=== PATIENT | male | born 1980 ===

== ENCOUNTER 2019-12-12 10:07 | Inpatient (IN) | payer SELFPAY ==
--- NOTE | 2019-12-12 10:21 | EDM.PDOC ---
ED HPI GENERAL MEDICAL PROBLEM - General Chief Complaint: General Stated Complaint: LEG RASH, TESTICULAR PAIN, BLOATING Time Seen by Provider: 12/12/19 10:10 Source of Information: Reports: Patient. Denies: Old Records (No [facility] records available) History Limitations: Reports: No Limitations - History of Present Illness INITIAL COMMENTS - FREE TEXT/NARRATIVE: The patient drove himself to the emergency room via private automobile for evaluation of a 16-day history of nonspecific rash on his legs bilaterally. During the last month he has also had some nonspecific abdominal bloating and increased dependent edema with progressive testicular swelling this morning. He did have some nonspecific chest pain about 2 months ago with negative EKG and no other significant work-up by his history and another facility. He does complain of nonspecific 8/10 abdominal discomfort from his bloating. No recent history of other abdominal pain, heartburn, nausea, diarrhea, melena, gross hematochezia, or any food intolerance, including fatty foods, etc. with normal bowel movement yesterday. He denies any gross hematuria, colic, or other UTI symptoms. The patient denies any chest pain/pressure, heart flutter, dizziness, orthostasis, orthopnea, diaphoresis, paresthesias, or any other anginal-type symptoms, although some possible mild dyspnea and decreased exercise tolerance during the last couple of months. The patient also denies any recent fever, cough, wheezing, etc.. Onset: Gradual, Other (As above) Duration: Getting Worse Location: Reports: Abdomen, Lower Extremity, Left, Lower Extremity, Right. Denies: Head, Face, Neck, Chest, Back, Upper Extremity, Left, Upper Extremity, Right, Radiates to Quality: Reports: Ache, Same as Previous Episode Severity: Moderate Improves with: Reports: None Worsens with: Reports: None Context: Reports: Other (As above). Denies: Sick Contact, Trauma Associated Symptoms: Reports: Shortness of Breath. Denies: Confusion, Chest Pain, Cough, Diaphoresis, Fever/Chills, Headaches, Loss of Appetite, Malaise, Nausea/Vomiting, Syncope, Weakness Treatments [employer]: Reports: Other (see below) (None) - Related Data Allergies Allergy/AdvReac Type Severity Reaction Status Date / Time No Known Allergies Allergy Verified 12/12/19 10:08 Home Meds: Home Meds Furosemide [Lasix] 20 mg PO DAILY #7 tab 12/12/19 [Rx] Potassium Chloride 20 meq PO DAILY #10 tablet.er 12/12/19 [Rx] metFORMIN [Glucophage XR] 500 mg PO BIDMEALS #14 tab.er 12/12/19 [Rx] Past Medical History HEENT History: Reports: None. Denies: Allergic Rhinitis, Cataract, Glaucoma, Hard of Hearing, Impaired Vision, Macular Degeneration, Otitis Media, Retinal Detachment Cardiovascular History: Reports: High Cholesterol. Denies: Afib, Aneurysm, Arrhythmia, Blood Clots/VTE/DVT, CAD, Cardiomyopathy, Heart Failure, Heart Murmur, Hypertension, GA, PVD, Syncope Respiratory History: Reports: None, Intubation, Previous. Denies: Asthma, Bronchitis, Recurrent, COPD, Intubation, Difficult, PE, Pneumonia, Recurrent, Pneumothorax, TB Gastrointestinal History: Reports: None. Denies: Cholelithiasis, Chronic Constipation, Chronic Diarrhea, Fecal Incontinence, Gastritis, GERD, GI Bleed, Hepatitis, Inflammatory Bowel Disease, Irritable Bowel Syndrome, Jaundice, Pancreatitis Genitourinary History: Reports: None. Denies: Acute Renal Failure, BPH, Chronic Renal Insuffiency, Renal Calculus, Retention, Urinary, STD, Urinary Incontinence, UTI, Recurrent Musculoskeletal History: Reports: None. Denies: Arthritis, Back Pain, Chronic, Fracture, Gout, Neck Pain, Chronic, Osteoarthritis, Osteoporosis, RA, SLE Neurological History: Reports: None. Denies: Cerebral Aneurysms, Concussion, CVA, Headaches, Chronic, Head Trauma, Migraines, MS, Neuropathy, Peripheral, Parkinson's, Seizure, TIA Psychiatric History: Reports: None. Denies: Abuse, Victim of, ADD, ADHD, Addiction, Anxiety, Depression, Psych Hospitalization(s), Psychosis, PTSD, Suicide Attempt, Suicidal Ideation Endocrine/Metabolic History: Reports: Obesity/BMI 30+. Denies: Diabetes, Type I, Diabetes, Type II, Diabetes Mellitus, Type 3c, Hypothyroidism, IDDM Hematologic History: Reports: None. Denies: Anemia, Blood Transfusion(s), Iron Deficiency Immunologic History: Reports: None. Denies: AIDS, HIV, SLE Oncologic (Cancer) History: Reports: None. Denies: Basal Cell Carcinoma, Colon, Hodgkin's Lymphoma, Leukemia, Lymphoma, Malignant Melanoma, Non-Hodgkin's Lymphoma, Prostate, Squamous Cell Carcinoma Dermatologic History: Reports: Chronic Cellulitis, Other (See Below). Denies: Eczema, Psoriasis Other Dermatologic History: Recurrent cellulitis and superficial skin ulcers of the legs bilaterally. - Infectious Disease History Infectious Disease History: Reports: Chicken Pox. Denies: C-Difficile, Measles, Meningitis, Mononucleosis, Mumps, Pertussis (Whooping Cough), Rheumatic Fever, Rubella, Scarlet Fever, Shingles, TB, VRE - Past Surgical History Head Surgeries/Procedures: Reports: None HEENT Surgical History: Reports: Adenoidectomy, Tonsillectomy, Other (See Below). Denies: Cataract Surgery, Eye Surgery, Laser Surgery, LASIK, Myringotomy w Tube(s), Naso-Sinus Surgery, Oral Surgery Other HEENT Surgeries/Procedures: Tonsillectomy and adenoidectomy at age 5. Cardiovascular Surgical History: Reports: None. Denies: Varicose Respiratory Surgical History: Reports: None. Denies: Thoracentesis GI Surgical History: Reports: None. Denies: Appendectomy, Cholecystectomy, Colonoscopy, Hernia, Abdominal, Hernia, Inguinal, Hernia Repair/Other, Polypectomy Male Surgical History: Reports: None. Denies: Vasectomy Neurological Surgical History: Reports: None. Denies: Vertebroplasty Musculoskeletal Surgical History: Reports: Other (See Below). Denies: Arthroscopic Knee, Arthroscopic Procedure, Carpal Tunnel, Ganglion Cyst, Joint Replacement, ORIF, Shoulder Surgery Other Musculoskeletal Surgeries/Procedures:: Open left knee surgery for repair of torn ligaments secondary to football injury at age 19. Social & Family History - Family History HEENT: Reports: None. Denies: Glaucoma, Macular Degeneration, Retinal Detac hment Cardiac: Reports: PVD/COD. Denies: Aneurysm, Arrhythmia, Blood Clots/VTE/DVT, CAD, Heart Failure, Heart Murmur, High Cholesterol, Hypertension, GA, Syncope Other Cardiac Family History: Maternal uncle with peripheral vascular disease secondary to his diabetes requiring toe amputations. Respiratory: Reports: None. Denies: Asthma, COPD, PE, Pneumothorax, Sleep Apnea GI: Reports: None. Denies: Celiac Disease, Cholelithiasis, Colon Polyps, GERD, GI bleed, Inflammatory Bowel Disease, Irritable Bowel Syndrome, PUD : Reports: None. Denies: Renal Calculus, Renal Disease/Insufficiency OBGYN: Reports: None. Denies: Endometriosis, Recurrent Spontaneous Musculoskeletal: Reports: None. Denies: Arthritis, Gout, RA, SLE Neurological: Reports: None. Denies: Alzheimers Disease, Cerebral Aneurysms, CVA, Dementia, Migraines, Parkinson's, Seizure, TIA Psychiatric: Reports: None. Denies: Abuse, Victim of, ADD, ADHD, Anxiety, Depression, Psych Hospitalization(s), PTSD, Suicide Attempt Endocrine/Metabolic: Reports: Diabetes, type II, IDDM, Other (See Below). Denies: Diabetes, Type I, Diabetes Mellitus, Type 3c, Hypothyroidism Other Endocrine/Metabolic Family History: Maternal grandmother and maternal uncles x2 with IDDM. Hematologic: Reports: Anemia, Other (See Below). Denies: SLE Other Hematologic Family History: Sister and brother with unknown type of anemia. Immunologic: Reports: None. Denies: AIDS, HIV, SLE Dermatologic: Reports: None. Denies: Eczema, Psoriasis Oncologic: Reports: Ovarian, Other (See Below). Denies: Colon, Esophageal, Hodgkin's Lymphoma, Leukemia, Lymphoma, Non-Hodgkin's Lymphoma, Prostate Other Oncologic Family History: Maternal grandmother with fatal ovarian cancer - Tobacco Use Smoking Status *Q: Light Tobacco Smoker Tobacco Use Within Last Twelve Months: Cigarettes Years of Tobacco use: 14 Packs/Tins Daily: 0.1 Packs/Tins Daily Comment: Occasional cigarette every couple of weeks. Used Tobacco, but Quit: No Smoking Cessation Information Provided To Patient: Yes (At hospital discharge) Second Hand Smoke Exposure: No Second Hand Smoke Education Provided: No - Caffeine Use Caffeine Use: Reports: Energy Drinks (1 can every 3 months), Soda (2 sodas per day), Tea (Occasional). Denies: Coffee - Alcohol Use Alcohol Use History: Yes Days Per Week of Alcohol Use: 0 Number of Drinks Per Day: 6 Number of Drinks Per Day Comment: Usually beer about 2 times per month. No previous DWIs, problems with alcohol abuse, etc. 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 ED EXAM, GENERAL - Physical Exam Exam: See Below Exam Limited By: No Limitations General Appearance: Alert, WD/WN, No Apparent Distress Eye Exam: Bilateral Eye: EOMI, Normal Inspection (No nystagmus), PERRL Ears: Normal External Exam, Normal Canal, Hearing Grossly Normal, Normal TMs Nose: Normal Inspection, Normal Mucosa, No Blood Throat/Mouth: Normal Inspection, Normal Lips, Normal Teeth, Normal Gums, Normal Oropharynx, Normal Voice, No Airway Compromise. No: Dysphagia, Perioral Cyanosis Head: Atraumatic, Normocephalic. No: Facial Swelling, Facial Tenderness, Sinus Tenderness Neck: Normal Inspection, Supple, Non-Tender, Full Range of Motion. No: Carotid Bruit, Lymphadenopathy (L), Lymphadenopathy (R), Thyromegaly Respiratory/Chest: No Respiratory Distress, No Accessory Muscle Use, Chest Non- Tender, Rales (Mild bilateral basilar rales). No: Pleural Rub, Retractions Cardiovascular: Normal Peripheral Pulses, No Edema (Dependent edema as below), No Gallop, No JVD, No Murmur, No Rub, Tachycardia (Occasional borderline tachycardia with regular rhythm). No: Gallop/S3, Gallop/S4, Friction Rub Peripheral Pulses: 2+: Radial (L), Radial (R), Dorsalis Pedis (L), Dorsalis Pedis (R) GI/Abdominal: Normal Bowel Sounds, Soft, Non-Tender, No Organomegaly, No Distention, No Abnormal Bruit, No Mass, Other (Obese). No: Guarding (Male) Exam: No Hernia, Other (Moderate bilateral hydroceles). No: Circumcised, Scrotum Tenderness (L), Testicular Mass Rectal (Males) Exam: Deferred Back Exam: Normal Inspection, Full Range of Motion. No: CVA Tenderness (L), CVA Tenderness (R), Muscle Spasm Extremities: Normal Range of Motion, Non-Tender, Normal Capillary Refill, Pedal Edema (+2 bilateral pedal/pretibial edema with multiple superficial noninfected ulcerations and moderate venous stasis dermatitis in the anterior tibial regions). No: Hussain's Sign, Leg Pain, Increased Warmth, Redness Neurological: Alert, Oriented, CN II-XII Intact, Normal Cognition, Normal Gait, Normal Reflexes, No Motor/Sensory Deficits Psychiatric: Normal Affect, Normal Mood Skin Exam: Wound/Incision (As above). No: Diaphoretic, Lymphangitis Lymphatic: No Adenopathy EKG INTERPRETATION EKG Date: 12/12/19 Time: 10:41 Rhythm: Other (Sinus tachycardia) Rate (Beats/Min): 105 [place]: LAD-Left [place]us Deviation (Extended left cardiac axis) P-Wave: Present QRS: Other (QRS interval of 0.18 seconds representing a complete bifascicular bundle branch block. Left ventricular hypertrophy by voltage) ST-T: Normal QT: Normal NH/PQ Interval: 0.16 seconds with extreme poor R wave progression in the anterior leads Comparison: NA - No Prior EKG EKG Interpretation Comments: 1. No acute ischemic changes 2. Sinus tachycardia 3. Complete bifascicular bundle branch block 4. Left ventricular hypertrophy by voltage Course - Vital Signs Last Recorded V/S: Last Vital Signs Temp 36.0 C L 12/12/19 10:10 Pulse 107 H 12/12/19 10:10 Resp 18 12/12/19 10:10 BP 119/78 12/12/19 10:10 Pulse Ox 96 12/12/19 10:10 Vital Signs - 24 hr 12/12/19 10:10 Temperature [ 36.0 C L Temporal] Pulse, 107 H Peripheral [ Pulse Oximetry] Respiratory 18 Rate Blood Pressure 119/78 [Left Upper Arm ] O2 Sat by Pulse 96 Oximetry - Orders/Labs/Meds Orders: Active Orders 24 hr Category Date Time Status EKG Documentation Completion [RC] ASDIRECTED Care 12/12/19 10:22 Active Nothing Per Oral Diet [DIET] Diet 12/12/19 Breakfast Active Abdomen Series w Chest 1V [CR] Stat Exams 12/12/19 10:21 Taken Obtain Past Medical Record [OM.PC] Urgent Oth 12/12/19 10:21 Active Resuscitation Status Stat Resus Stat 12/12/19 10:21 Ordered Labs: Laboratory Tests 12/12/19 12/12/19 12/12/19 Range/Units 10:25 10:25 10:25 WBC 6.0 (4.0-10.2) K/uL RBC 4.36 (4.33-5.41) M/uL Hgb 12.7 L (13.1-16.8) g/dL Hct 40.1 (39.0-49.0) % MCV 92.0 (84.0-98.0) fL MCH 29.1 (28.2-33.3) pg MCHC 31.7 (31.7-36.0) g/dL RDW 15.7 H (11.2-14.1) % Plt Count 146 L (150-350) K/uL Neut % (Auto) 64.6 (45.0-80.0) % Lymph % (Auto) 26.6 (10.0-50.0) % [place] % (Auto) 7.1 (2.0-14.0) % Eos % (Auto) 1.5 (0.0-5.0) % Baso % (Auto) 0.2 (0.0-2.0) % Neut # (Auto) 3.85 (1.40-7.00) K/uL Lymph # (Auto) 1.58 (0.50-3.50) K/uL [place] # (Auto) 0.42 (0.00-1.00) K/uL Eos # (Auto) 0.09 (0.00-0.50) K/uL Baso # (Auto) 0.01 (0.00-0.20) K/uL PT 12.1 H (9.5-12.0) SEC INR 1.2 APTT 25.7 (24.5-32.8) SEC Sodium (136-145) mmol/L Potassium (3.5-5.1) mmol/L Chloride (98-107) mmol/L Carbon Dioxide (21.0-32.0) mmol/L BUN (7-18) mg/dL Creatinine (0.51-1.17) mg/dL Est Cr Clr Drug Dosing mL/min Estimated GFR (MDRD) mL/min Glucose (74-106) mg/dL Hemoglobin A1c (4.3-5.7) % Lactic Acid (0.4-2.0) mmol/L Uric Acid (2.6-7.2) mg/dL Calcium (8.5-10.1) mg/dL Magnesium (1.8-2.4) mg/dL Total Bilirubin (0.2-1.0) mg/dL Direct Bilirubin (0.0-0.2) mg/dL Indirect Bilirubin mg/dL AST (15-37) U/L ALT (12-78) U/L Alkaline Phosphatase (46-116) IU/L Ammonia (11-32) umol/L Creatine Kinase (26-308) U/L Creatine Kinase Index (0.0-2.5) % CK-MB (CK-2) (0.00-3.60) ng/mL Troponin I (0.000-0.056) ng/mL NT-Pro-B Natriuret Pep (0-125) pg/mL Total Protein (6.4-8.2) g/dL Albumin (3.4-5.0) g/dL Amylase 62 (25-115) U/L Lipase (73-393) U/L 12/12/19 12/12/19 12/12/19 Range/Units 10:25 10:25 10:25 WBC (4.0-10.2) K/uL RBC (4.33-5.41) M/uL Hgb (13.1-16.8) g/dL Hct (39.0-49.0) % MCV (84.0-98.0) fL MCH (28.2-33.3) pg MCHC (31.7-36.0) g/dL RDW (11.2-14.1) % Plt Count (150-350) K/uL Neut % (Auto) (45.0-80.0) % Lymph % (Auto) (10.0-50.0) % [place] % (Auto) (2.0-14.0) % Eos % (Auto) (0.0-5.0) % Baso % (Auto) (0.0-2.0) % Neut # (Auto) (1.40-7.00) K/uL Lymph # (Auto) (0.50-3.50) K/uL [place] # (Auto) (0.00-1.00) K/uL Eos # (Auto) (0.00-0.50) K/uL Baso # (Auto) (0.00-0.20) K/uL PT (9.5-12.0) SEC INR APTT (24.5-32.8) SEC Sodium 136 (136-145) mmol/L Potassium 3.8 (3.5-5.1) mmol/L Chloride 101 (98-107) mmol/L Carbon Dioxide 25.7 (21.0-32.0) mmol/L BUN 13 (7-18) mg/dL Creatinine 0.81 (0.51-1.17) mg/dL Est Cr Clr Drug Dosing 130.41 mL/min Estimated GFR (MDRD) > 60 mL/min Glucose 249 H (74-106) mg/dL Hemoglobin A1c (4.3-5.7) % Lactic Acid 1.6 (0.4-2.0) mmol/L Uric Acid 0.1 L (2.6-7.2) mg/dL Calcium 8.8 (8.5-10.1) mg/dL Magnesium 1.9 (1.8-2.4) mg/dL Total Bilirubin 1.7 H (0.2-1.0) mg/dL Direct Bilirubin (0.0-0.2) mg/dL Indirect Bilirubin mg/dL AST 24 (15-37) U/L ALT 25 (12-78) U/L Alkaline Phosphatase 71 (46-116) IU/L Ammonia 32 (11-32) umol/L Creatine Kinase 201 (26-308) U/L Creatine Kinase Index 0.9 (0.0-2.5) % CK-MB (CK-2) 1.90 (0.00-3.60) ng/mL Troponin I 0.012 (0.000-0.056) ng/mL NT-Pro-B Natriuret Pep 1582 H (0-125) pg/mL Total Protein 7.7 (6.4-8.2) g/dL Albumin 3.5 (3.4-5.0) g/dL Amylase (25-115) U/L Lipase 132 (73-393) U/L 12/12/19 12/12/19 Range/Units 10:25 10:25 WBC (4.0-10.2) K/uL RBC (4.33-5.41) M/uL Hgb (13.1-16.8) g/dL Hct (39.0-49.0) % MCV (84.0-98.0) fL MCH (28.2-33.3) pg MCHC (31.7-36.0) g/dL RDW (11.2-14.1) % Plt Count (150-350) K/uL Neut % (Auto) (45.0-80.0) % Lymph % (Auto) (10.0-50.0) % [place] % (Auto) (2.0-14.0) % Eos % (Auto) (0.0-5.0) % Baso % (Auto) (0.0-2.0) % Neut # (Auto) (1.40-7.00) K/uL Lymph # (Auto) (0.50-3.50) K/uL [place] # (Auto) (0.00-1.00) K/uL Eos # (Auto) (0.00-0.50) K/uL Baso # (Auto) (0.00-0.20) K/uL PT (9.5-12.0) SEC INR APTT (24.5-32.8) SEC Sodium (136-145) mmol/L Potassium (3.5-5.1) mmol/L Chloride (98-107) mmol/L Carbon Dioxide (21.0-32.0) mmol/L BUN (7-18) mg/dL Creatinine (0.51-1.17) mg/dL Est Cr Clr Drug Dosing mL/min Estimated GFR (MDRD) mL/min Glucose (74-106) mg/dL Hemoglobin A1c 9.1 H (4.3-5.7) % Lactic Acid (0.4-2.0) mmol/L Uric Acid (2.6-7.2) mg/dL Calcium (8.5-10.1) mg/dL Magnesium (1.8-2.4) mg/dL Total Bilirubin 1.7 H (0.2-1.0) mg/dL Direct Bilirubin 0.7 H (0.0-0.2) mg/dL Indirect Bilirubin 1.0 mg/dL AST (15-37) U/L ALT (12-78) U/L Alkaline Phosphatase (46-116) IU/L Ammonia (11-32) umol/L Creatine Kinase (26-308) U/L Creatine Kinase Index (0.0-2.5) % CK-MB (CK-2) (0.00-3.60) ng/mL Troponin I (0.000-0.056) ng/mL NT-Pro-B Natriuret Pep (0-125) pg/mL Total Protein (6.4-8.2) g/dL Albumin (3.4-5.0) g/dL Amylase (25-115) U/L Lipase (73-393) U/L Meds: None - Radiology Interpretation Free Text/Narrative:: Acute abdominal x-rays shows moderate cardiomegaly and CHF with additional pulmonary obstructive disease but no pulmonary infiltrates or pneumothorax. Moderate diffuse stool and mild nonspecific bowel gaseous pattern with no free air, fluid levels, ileus, or obstruction. Mildly elevated right hemidiaphragm. Departure - Departure Time of Disposition: 13:30 Disposition: Admitted As Inpatient 66 Condition: Good Clinical Impression: CHF, Congestive heart failure, Left bundle branch block, Hyperbilirubinemia, Tobacco abuse counseling Diabetes mellitus Qualifiers: Diabetes mellitus type: type 2 Diabetes mellitus senior living insulin use: without senior living use Diabetes mellitus complication status: without complication Qualified Code(s): E11.9 - Type 2 diabetes mellitus without complications Cellulitis Qualifiers: Site of cellulitis: extremity Site of cellulitis of extremity: lower extremity Laterality: unspecified laterality Qualified Code(s): L03.119 - Cellulitis of unspecified part of limb Anemia Qualifiers: Anemia type: unspecified type Qualified Code(s): D64.9 - Anemia, unspecified - Discharge Information *PRESCRIPTION DRUG MONITORING PROGRAM REVIEWED*: Not Applicable *COPY OF PRESCRIPTION DRUG MONITORING REPORT IN PATIENT YEISON: Not Applicable Prescriptions: metFORMIN [Glucophage XR] 500 mg PO BIDMEALS #14 tab.er Furosemide [Lasix] 20 mg PO DAILY #7 tab Potassium Chloride 20 meq PO DAILY #10 tablet.er Instructions: Diabetes Mellitus and Nutrition, Adult Referrals: PCP,Not In Area [Ordering Only Provider] - Forms: ED Department Discharge Care Plan Goals: See plan Sepsis Event Note (ED) - Focused Exam Vital Signs: Vital Signs Temp Pulse Resp BP Pulse Ox 12/12/19 10:10 36.0 C L 107 H 18 119/78 96 - Problem List & Annotations (1) CHF, Congestive heart failure SNOMED Code(s): 79437034 Code(s): I50.9 - HEART FAILURE, UNSPECIFIED Status: Acute Priority: High Current Visit: Yes Onset Date: 12/12/19 Annotation/Comment:: Initially the patient wanted to be discharged to home rather than be admitted, however subsequently changed his mind. Previously planned following of his heart disease, etc. by Savanna Auguste, OPHTHALMOLOGY TECHNICIAN-C from [facility] in [place] were canceled. No chest pain or anginal type symptoms, however patient would benefit from a Cardiolite stress test once his CHF has improved secondary to multiple cardiac risk factors. IV Lasix to be initiated shortly after admission. Echocardiogram recommended on an outpatient basis. Initiate standard rule out GA orders. Cardiology consultation depending on his clinical course. (2) Diabetes mellitus SNOMED Code(s): 23766206 Code(s): E11.9 - TYPE 2 DIABETES MELLITUS WITHOUT COMPLICATIONS Status: Acute Priority: High Current Visit: Yes Onset Date: 12/12/19 Annotation/Comment:: Newly diagnosed with significantly elevated glycosylated hemoglobin. Weight loss in moderation advisable. Heart healthy, diabetic diet to be provided at discharge with additional fluid restriction secondary to his CHF as above. Diabetic teaching during this hospitalization. Patient may be a candidate for insulin therapy. Lipid panel in the a.m.. Obtain urine for microalbumin. Qualifiers: Diabetes mellitus type: type 2 Diabetes mellitus intermodal customer service insulin use: without senior living use Diabetes mellitus complication status: without complication Qualified Code(s): E11.9 - Type 2 diabetes mellitus without complications (3) Left bundle branch block SNOMED Code(s): 58101946 Code(s): I44.7 - LEFT BUNDLE-BRANCH BLOCK, UNSPECIFIED Status: Acute Priority: High Current Visit: Yes Onset Date: 12/12/19 Annotation/Comment:: Newly diagnosed complete bifascicular bundle branch block. Cardiac work-up recommended as above. (4) Cellulitis SNOMED Code(s): 122800967 Code(s): L03.90 - CELLULITIS, UNSPECIFIED Status: Chronic Priority: Medium Current Visit: Yes Annotation/Comment:: Chronic recurrent cellulitis likely secondary to his newly diagnosed diabetes. No indication for antibiotic therapy at this time. Qualifiers: Site of cellulitis: extremity Site of cellulitis of extremity: lower extremity Laterality: unspecified laterality Qualified Code(s): L03.119 - Cellulitis of unspecified part of limb (5) Anemia SNOMED Code(s): 906961130 Code(s): D64.9 - ANEMIA, UNSPECIFIED Status: Acute Priority: Medium Current Visit: Yes Onset Date: 12/12/19 Annotation/Comment:: Work-up with a.m. blood work. No significant abdominal pain or evidence of GI bleed. Qualifiers: Anemia type: unspecified type Qualified Code(s): D64.9 - Anemia, unspecified (6) Hyperbilirubinemia SNOMED Code(s): 03734949 Code(s): E80.6 - OTHER DISORDERS OF BILIRUBIN METABOLISM Status: Acute Priority: Medium Current Visit: Yes Onset Date: 12/12/19 Annotation/Comment:: Observe for now. Possibly secondary to his alcohol use. Consider abdominal and testicular ultrasounds secondary to possible additional ascites and current bilateral hydroceles depending on his clinical course. Ultrasounds not available today. (7) Tobacco abuse counseling SNOMED Code(s): 080699520, 580621711, 823872940 Code(s): Z71.6 - TOBACCO ABUSE COUNSELING Status: Chronic Priority: Medium Current Visit: Yes Annotation/Comment:: Tobacco cessation information to be provided at discharge. (8) COPD (chronic obstructive pulmonary disease) SNOMED Code(s): 72875743 Code(s): J44.9 - CHRONIC OBSTRUCTIVE PULMONARY DISEASE, UNSPECIFIED Status: Acute Priority: Medium Current Visit: Yes Onset Date: 12/12/19 Annotation/Comment:: COPD by today's chest x-ray. No fever or bronchitic type symptoms. Consider PFTs on an outpatient basis. Qualifiers: COPD type: emphysema - Problem List Review Problem List Initiated/Reviewed/Updated: Yes - My Orders Last 24 Hours: My Active Orders 12/12/19 Breakfast Nothing Per Oral Diet [DIET] 12/12/19 10:21 Abdomen Series w Chest 1V [CR] Stat Obtain Past Medical Record [OM.PC] Urgent Resuscitation Status Stat 12/12/19 10:22 EKG Documentation Completion [RC] ASDIRECTED - Assessment/Plan Admission H&P: Please use this note as an admission H&P Last 24 Hours: My Active Orders 12/12/19 Breakfast Nothing Per Oral Diet [DIET] 12/12/19 10:21 Abdomen Series w Chest 1V [CR] Stat Obtain Past Medical Record [OM.PC] Urgent Resuscitation Status Stat 12/12/19 10:22 EKG Documentation Completion [RC] ASDIRECTED Assessment:: As above Plan: As above. Extensive precautions were given to the patient, who is in agreement with the treatment plan. The patient will require about 3-4 days of inpatient/acute care secondary to multiple health problems as above. [facility] physician assumes care in the a.m.
[2019-12-12 10:54] LABS: PTT,PARTIAL THROMBOPLSTIN TIME 25.7 SEC (24.5-32.8)
[2019-12-12 11:17] LABS: CHLORIDE,CL 101 mmol/L (98-107); SODIUM,NA 136 mmol/L (136-145)
[2019-12-12 11:25] LABS: HEMOGLOBIN A1C 9.1 % (4.3-5.7)
[2019-12-12] MEDS ORDERED: Furosemide 40 MG/4 ML VIAL IVPUSH SCH (13:45)
[2019-12-12] MEDS ORDERED: Sodium Chloride 0.9% 10 ML Syringe FLUSH PRN (13:45)
[2019-12-12] MEDS ORDERED: Enoxaparin 60 MG/0.6 ML Syringe SUBCUT SCH (13:45)
[2019-12-12] MEDS ORDERED: Temazepam 15 MG Cap PO PRN (13:45)
[2019-12-12] MEDS ORDERED: Acetaminophen 325 MG Tab PO PRN (13:45)
[2019-12-12] MEDS ORDERED: Furosemide 40 MG/4 ML VIAL IVPUSH ONE (14:16)
[2019-12-12] MEDS: Sodium Chloride 0.9% 10 ML Syringe FLUSH PRN ×2 (14:39→21:07)
[2019-12-12] MEDS: Potassium Chloride 20 MEQ Tab.ER PO SCH (17:42)
[2019-12-12] MEDS: metFORMIN 500 MG Tab PO SCH (17:42)
[2019-12-12] MEDS: Furosemide 40 MG/4 ML VIAL IVPUSH SCH (21:07)
[2019-12-13] MEDS: Sodium Chloride 0.9% 10 ML Syringe FLUSH PRN (05:11)
[2019-12-13] MEDS: Furosemide 40 MG/4 ML VIAL IVPUSH SCH (05:11)
[2019-12-13 08:41] LABS: CHLORIDE,CL 103 mmol/L (98-107); SODIUM,NA 142 mmol/L (136-145)
[2019-12-13] MEDS: metFORMIN 500 MG Tab PO SCH ×2 (09:42→17:03)
[2019-12-13] MEDS: Potassium Chloride 20 MEQ Tab.ER PO SCH ×3 (09:42→17:03)
--- NOTE | 2019-12-13 13:25 | PCM.PN ---
- General Info Date of Service: 12/13/19 Admission Dx/Problem (Free Text): Patient admitted for diuresis after complaining of significant edema. Noted to poorly controlled DM along with some CHF. Subjective Update: Feels much less bloated today. More comfortable. Functional Status: Reports: Pain Controlled, Tolerating Diet, Ambulating, Urinating. Denies: New Symptoms - Review of Systems General: Reports: No Symptoms HEENT: Reports: No Symptoms Pulmonary: Reports: No Symptoms. Denies: Shortness of Breath Cardiovascular: Reports: No Symptoms Gastrointestinal: Reports: No Symptoms Genitourinary: Reports: No Symptoms Musculoskeletal: Reports: No Symptoms Skin: Reports: Other (has areas of discoloration on both lower legs from previous skin lesions) Neurological: Reports: No Symptoms Psychiatric: Reports: No Symptoms Systems Review Comment:: Puffiness/edema complaint - Patient Data Vitals - Most Recent: Last Vital Signs Temp 36.1 C 12/13/19 12:00 Pulse 96 12/13/19 12:00 Resp 14 12/13/19 12:00 BP 125/81 12/13/19 12:00 Pulse Ox 97 12/13/19 12:00 Weight - Most Recent: 132.086 kg I&O - Last 24 Hours: Intake & Output 12/12/19 12/13/19 12/13/19 22:59 06:59 14:59 Intake Total 300 Balance 300 Lab Results Last 24 Hours: Laboratory Results - last 24 hr 12/12/19 12/12/19 12/13/19 Range/Units 15:10 16:55 07:57 WBC 6.2 (4.0-10.2) K/uL RBC 4.32 L (4.33-5.41) M/uL Hgb 12.7 L (13.1-16.8) g/dL Hct 40.4 (39.0-49.0) % MCV 93.5 (84.0-98.0) fL MCH 29.4 (28.2-33.3) pg MCHC 31.4 L (31.7-36.0) g/dL RDW 16.0 H (11.2-14.1) % Plt Count 150 (150-350) K/uL Neut % (Auto) 66.8 (45.0-80.0) % Lymph % (Auto) 21.6 (10.0-50.0) % [place] % (Auto) 9.8 (2.0-14.0) % Eos % (Auto) 1.6 (0.0-5.0) % Baso % (Auto) 0.2 (0.0-2.0) % Neut # (Auto) 4.17 (1.40-7.00) K/uL Lymph # (Auto) 1.35 (0.50-3.50) K/uL [place] # (Auto) 0.61 (0.00-1.00) K/uL Eos # (Auto) 0.10 (0.00-0.50) K/uL Baso # (Auto) 0.01 (0.00-0.20) K/uL Sodium (136-145) mmol/L Potassium (3.5-5.1) mmol/L Chloride (98-107) mmol/L Carbon Dioxide (21.0-32.0) mmol/L BUN (7-18) mg/dL Creatinine (0.51-1.17) mg/dL Est Cr Clr Drug Dosing mL/min Estimated GFR (MDRD) mL/min Glucose (74-106) mg/dL Calcium (8.5-10.1) mg/dL Iron (50-175) ug/dL TIBC (250-450) ug/dL % Saturation Ferritin (8-388) ng/mL Total Bilirubin (0.2-1.0) mg/dL AST (15-37) U/L ALT (12-78) U/L Alkaline Phosphatase (46-116) IU/L Creatine Kinase 193 (26-308) U/L Creatine Kinase Index 0.9 (0.0-2.5) % CK-MB (CK-2) 1.80 (0.00-3.60) ng/mL Troponin I 0.008 (0.000-0.056) ng/mL NT-Pro-B Natriuret Pep (0-125) pg/mL Total Protein (6.4-8.2) g/dL Albumin (3.4-5.0) g/dL Triglycerides (30-150) mg/dL Cholesterol (100-200) mg/dL LDL Cholesterol, Calc (0-100) mg/dL HDL Cholesterol (40-60) mg/dL Vitamin B12 (193-986) pg/mL Specimen Type Urincc Urine Color Yellow Urine Appearance Clear Urine pH 5.5 (5.0-9.0) Ur Specific [place] 1.020 (1.005-1.030) Urine Protein Trace H (NEGATIVE) mg/dL Urine Glucose (UA) Negative (NEGATIVE) mg/dL Urine Ketones Negative (NEGATIVE) mg/dL Urine Occult Blood Negative (NEGATIVE) Urine Nitrite Negative (NEGATIVE) Urine Bilirubin Negative (NEGATIVE) Urine Urobilinogen 4.0 H (0.2-1.0) E.U./dL Ur Leukocyte Esterase Negative (NEGATIVE) Urine RBC Not seen /HPF Urine WBC 0-5 /HPF Ur Epithelial Cells Rare /LPF Urine Bacteria Few (NONE TO FEW) /HPF Urine Mucus Occasional H (NEGATIVE) /LPF 12/13/19 12/13/19 Range/Units 07:57 07:57 WBC (4.0-10.2) K/uL RBC (4.33-5.41) M/uL Hgb (13.1-16.8) g/dL Hct (39.0-49.0) % MCV (84.0-98.0) fL MCH (28.2-33.3) pg MCHC (31.7-36.0) g/dL RDW (11.2-14.1) % Plt Count (150-350) K/uL Neut % (Auto) (45.0-80.0) % Lymph % (Auto) (10.0-50.0) % [place] % (Auto) (2.0-14.0) % Eos % (Auto) (0.0-5.0) % Baso % (Auto) (0.0-2.0) % Neut # (Auto) (1.40-7.00) K/uL Lymph # (Auto) (0.50-3.50) K/uL [place] # (Auto) (0.00-1.00) K/uL Eos # (Auto) (0.00-0.50) K/uL Baso # (Auto) (0.00-0.20) K/uL Sodium 142 (136-145) mmol/L Potassium 3.9 (3.5-5.1) mmol/L Chloride 103 (98-107) mmol/L Carbon Dioxide 32.3 H (21.0-32.0) mmol/L BUN 11 (7-18) mg/dL Creatinine 0.95 (0.51-1.17) mg/dL Est Cr Clr Drug Dosing 111.19 mL/min Estimated GFR (MDRD) > 60 mL/min Glucose 143 H (74-106) mg/dL Calcium 9.2 (8.5-10.1) mg/dL Iron 57 (50-175) ug/dL TIBC 379 (250-450) ug/dL % Saturation 15.00049 Ferritin 192 (8-388) ng/mL Total Bilirubin 2.7 H (0.2-1.0) mg/dL AST 37 (15-37) U/L ALT 29 (12-78) U/L Alkaline Phosphatase 55 (46-116) IU/L Creatine Kinase 131 (26-308) U/L Creatine Kinase Index 0.9 (0.0-2.5) % CK-MB (CK-2) 1.20 (0.00-3.60) ng/mL Troponin I 0.011 (0.000-0.056) ng/mL NT-Pro-B Natriuret Pep 1296 H (0-125) pg/mL Total Protein 7.7 (6.4-8.2) g/dL Albumin 3.3 L (3.4-5.0) g/dL Triglycerides 58 (30-150) mg/dL Cholesterol 126 (100-200) mg/dL LDL Cholesterol, Calc 87 (0-100) mg/dL HDL Cholesterol 27 L (40-60) mg/dL Vitamin B12 896 (193-986) pg/mL Specimen Type Urine Color Urine Appearance Urine pH (5.0-9.0) Ur Specific [place] (1.005-1.030) Urine Protein (NEGATIVE) mg/dL Urine Glucose (UA) (NEGATIVE) mg/dL Urine Ketones (NEGATIVE) mg/dL Urine Occult Blood (NEGATIVE) Urine Nitrite (NEGATIVE) Urine Bilirubin (NEGATIVE) Urine Urobilinogen (0.2-1.0) E.U./dL Ur Leukocyte Esterase (NEGATIVE) Urine RBC /HPF Urine WBC /HPF Ur Epithelial Cells /LPF Urine Bacteria (NONE TO FEW) /HPF Urine Mucus (NEGATIVE) /LPF Jason Results Last 24 Hours: Microbiology 12/12/19 15:10 Urine Culture - Preliminary Urine, Clean Catch NO GROWTH AFTER 1 DAY Med Orders - Current: Current Medications Acetaminophen (Tylenol) 650 mg PO Q4H PRN PRN Reason: Pain Furosemide (Lasix) 20 mg IVPUSH BID [facility] Metformin HCl (Glucophage) 500 mg PO BID [facility] Last Admin: 12/13/19 09:42 Dose: 500 mg Documented by: Potassium Chloride (Klor-Con M20) 20 meq PO BID [facility] Sodium Chloride (Saline Flush) 10 ml FLUSH ASDIRECTED PRN PRN Reason: Keep Vein Open Last Admin: 12/13/19 05:11 Dose: 10 ml Documented by: Sodium Chloride (Saline Flush) 10 ml FLUSH Q12HR PRN PRN Reason: Keep Vein Open Temazepam (Restoril) 15 mg PO BEDTIME PRN PRN Reason: Insomnia Discontinued Medications Enoxaparin Sodium (Lovenox) 60 mg SUBCUT Q24H [facility] Last Admin: 12/12/19 14:25 Dose: Not Given Documented by: Furosemide (Lasix) 40 mg IVPUSH Q8H [facility] Last Admin: 12/12/19 14:25 Dose: Not Given Documented by: Furosemide (Lasix) 40 mg IVPUSH Q8H [facility] Last Admin: 12/13/19 05:11 Dose: 40 mg Documented by: Furosemide (Lasix) 60 mg IVPUSH NOW ONE Stop: 12/12/19 14:17 Last Admin: 12/12/19 14:38 Dose: 60 mg Documented by: Potassium Chloride (Klor-Con M20) 20 meq PO TID [facility] Last Admin: 12/13/19 09:42 Dose: 20 meq Documented by: - Exam General: Alert, Oriented, Cooperative, No Acute Distress HEENT: Pupils Equal, Pupils Reactive, EOMI, Mucous Membr. Moist/[place] Neck: Supple Lungs: Clear to Auscultation, Normal Respiratory Effort Cardiovascular: Regular Rate, Regular Rhythm GI/Abdominal Exam: Normal Bowel Sounds, Non-Tender, No Distention (Male) Exam: Deferred Back Exam: No: CVA Tenderness (L), CVA Tenderness (R), Muscle Spasm Extremities: Non-Tender, Normal Capillary Refill. No: Leg Pain, Increased Warmt h, Mottled, Pallor, Redness Skin: Warm, Dry, Other (no acute changes noted) Neurological: No New Focal Deficit Psy/Mental Status: Alert, Normal Affect, Normal Mood EKG INTERPRETATION EKG Date: 12/13/19 Time: 09:19 Rhythm: NSR Rate (Beats/Min): 90 [place]: Normal P-Wave: Present QRS: LBBB ST-T: Normal QT: Normal Comparison: Change From Previous EKG (improved rate.) Sepsis Event Note - Evaluation Sepsis Screening Result: No Definite Risk - Focused Exam Vital Signs: Vital Signs Temp Pulse Resp BP Pulse Ox 12/13/19 12:00 36.1 C 96 14 125/81 97 12/13/19 08:00 35.6 C L 88 18 113/80 96 12/13/19 04:00 36.3 C 92 16 121/85 95 - Problem List & Annotations (1) Generalized edema SNOMED Code(s): 956489268, 999259440 Code(s): R60.1 - GENERALIZED EDEMA Status: Chronic Priority: High Current Visit: Yes Annotation/Comment:: Patient has noticed increasing problems with edema for quite some time. Has noticed drinking alcohol makes it worse the next day. Came to ER due to signficant overall worsening as per ER note. Feels much improved after Lasix diuresis. Went from 139.8kg to 132kg since admission. Suspect DM/CHF/Etoh use contributing to this issue. (2) Diabetes mellitus SNOMED Code(s): 84759347 Code(s): E11.9 - TYPE 2 DIABETES MELLITUS WITHOUT COMPLICATIONS Status: Acute Priority: High Current Visit: Yes Onset Date: 12/12/19 Qualifiers: Diabetes mellitus type: type 2 Diabetes mellitus intermediate accountant insulin use: without mcfp use Diabetes mellitus complication status: without complication Qualified Code(s): E11.9 - Type 2 diabetes mellitus without complications Annotation/Comment:: Newly diagnosed with significantly elevated glycosylated hemoglobin. Weight loss in moderation advisable. Heart healthy, diabetic diet to be provided at discharge with additional fluid restriction secondary to his CHF as above. Diabetic teaching during this hospitalization. Patient may be a candidate for insulin therapy. Lipid panel overall unremarkable except for low HDL. Trace protein in urine, no glycosuria (3) CHF, Congestive heart failure SNOMED Code(s): 09322506 Code(s): I50.9 - HEART FAILURE, UNSPECIFIED Status: Acute Priority: High Current Visit: Yes Onset Date: 12/12/19 Annotation/Comment:: No chest pain or anginal type symptoms, however patient would benefit from a Cardiolite stress test once his CHF has improved secondary to multiple cardiac risk factors. IV Lasix to be initiated shortly after admission. Echocardiogram recommended on an outpatient basis. Troponins unremarkable. EKGs show left BBB but no evidence of acute ischemia. Cardiology consultation depending on his clinical course. (4) Anemia SNOMED Code(s): 015928583 Code(s): D64.9 - ANEMIA, UNSPECIFIED Status: Acute Priority: Medium Current Visit: Yes Onset Date: 12/12/19 Qualifiers: Anemia type: unspecified type Annotation/Comment:: Iron studies overall unremarkable. (5) COPD (chronic obstructive pulmonary disease) SNOMED Code(s): 75038970 Code(s): J44.9 - CHRONIC OBSTRUCTIVE PULMONARY DISEASE, UNSPECIFIED Status: Acute Priority: Medium Current Visit: Yes Onset Date: 12/12/19 Qualifiers: COPD type: emphysema Annotation/Comment:: COPD by today's chest x-ray. No fever or bronchitic type symptoms. Consider PFTs on an outpatient basis. (6) Hyperbilirubinemia SNOMED Code(s): 48752794 Code(s): E80.6 - OTHER DISORDERS OF BILIRUBIN METABOLISM Status: Acute Priority: Medium Current Visit: Yes Onset Date: 12/12/19 Annotation/Comment:: Observe for now. Possibly secondary to his alcohol use. Consider abdominal and testicular ultrasounds secondary to possible additional ascites and current bilateral hydroceles depending on his clinical course. Ultrasounds not available today. (7) Left bundle branch block SNOMED Code(s): 86533057 Code(s): I44.7 - LEFT BUNDLE-BRANCH BLOCK, UNSPECIFIED Status: Acute Norma ority: High Current Visit: Yes Onset Date: 12/12/19 Annotation/Comment:: Newly diagnosed complete bifascicular bundle branch block. Cardiac work-up recommended as above. (8) Cellulitis SNOMED Code(s): 258797436 Code(s): L03.90 - CELLULITIS, UNSPECIFIED Status: Chronic Priority: Medium Current Visit: Yes Qualifiers: Site of cellulitis: extremity Site of cellulitis of extremity: lower extremity Laterality: unspecified laterality Qualified Code(s): L03.119 - Cellulitis of unspecified part of limb Annotation/Comment:: Chronic recurrent cellulitis likely secondary to his newly diagnosed diabetes. No indication for antibiotic therapy at this time. (9) Tobacco abuse counseling SNOMED Code(s): 692012431, 359007622, 468158672 Code(s): Z71.6 - TOBACCO ABUSE COUNSELING Status: Chronic Priority: Medium Current Visit: Yes Annotation/Comment:: Tobacco cessation information to be provided at discharge. - Problem List Review Problem List Initiated/Reviewed/Updated: Yes - My Orders Last 24 Hours: My Active Orders 12/13/19 Lunch Heart Healthy Diet [DIET] 12/13/19 13:19 Accu Check [Blood Glucose Check, Bedside] [RC] QIDACANDBED 12/13/19 18:00 Furosemide [Lasix] 20 mg IVPUSH BID Potassium Chloride [Klor-Con M20] 20 meq PO BID - Assessment Assessment:: as above - Plan Plan:: as above. Consider discharge tomorrow with close follow up at clinic this week if patient continues to do well.
[2019-12-13] MEDS: Furosemide 20 MG/2 ML VIAL IVPUSH SCH (17:03)
[2019-12-14] MEDS: Sodium Chloride 0.9% 10 ML Syringe FLUSH PRN (07:38)
[2019-12-14] MEDS: metFORMIN 500 MG Tab PO SCH (07:38)
[2019-12-14] MEDS: Potassium Chloride 20 MEQ Tab.ER PO SCH (07:38)
[2019-12-14] MEDS: Furosemide 20 MG/2 ML VIAL IVPUSH SCH (07:38)
--- NOTE | 2019-12-14 12:32 | PCM.DCSUM1 ---
Discharge Summary - Hospital Course Brief History: Patient admitted for further evaluation and treatment of fluid overload. Noted to be diabetic/elevated proBNP. Diagnosis: Stroke: No - Discharge Data Discharge Date: 12/14/19 Discharge Disposition: Home, Self-Care 01 Condition: Good - Referral to Home Health Primary Care Physician: PCP None - Discharge Diagnosis/Problem(s) (1) Generalized edema SNOMED Code(s): 016745039, 291628818 ICD Code: R60.1 - GENERALIZED EDEMA Status: Chronic Priority: High Current Visit: Yes Problem Details: Patient has noticed increasing problems with edema for quite some time. Has noticed drinking alcohol makes it worse the next day. Came to ER due to signficant overall worsening as per ER note. Feels much improved after Lasix diuresis. Went from 139.8kg to 130kg since admission. Suspect DM/CHF/Etoh use contributing to this issue. (2) Diabetes mellitus SNOMED Code(s): 71511397 ICD Code: E11.9 - TYPE 2 DIABETES MELLITUS WITHOUT COMPLICATIONS Status: Acute Priority: High Current Visit: Yes Onset Date: 12/12/19 Problem Details: Newly diagnosed with significantly elevated glycosylated hemoglobin. Weight loss in moderation advisable. Lower carb/heart healthy diet discussed during stay. Diabetic teaching during this hospitalization. Lipid panel overall unremarkable except for low HDL. Patient is self-pay and there will be some expected obstacles with with follow up as well as with purchasing meds/blood sugar meter because of this. For now will keep it simple and start patient on oral medication. Recommended that he purchase blood glucose monitor and strips/be trained in use and use this to follow blood sugar trends as well as blood sugar elevation after meal in order to identify foods to avoid. He did show active interest in discussing appropriate diet/strategic planning. Qualifiers: Diabetes mellitus type: type 2 Diabetes mellitus [facility] insulin use: without termite control representative use Diabetes mellitus complication status: without complication Qualified Code(s): E11.9 - Type 2 diabetes mellitus without complications (3) CHF, Congestive heart failure SNOMED Code(s): 82768520 ICD Code: I50.9 - HEART FAILURE, UNSPECIFIED Status: Acute Priority: High Current Visit: Yes Onset Date: 12/12/19 Problem Details: No chest pain or anginal type symptoms. Elevated proBNP and fluid retention. IV Lasix to be initiated shortly after admission. Significant diuresis during stay. Patient feels much improved. Troponins unremarkable. EKGs show left BBB but no evidence of acute ischemia. It was recommended to patient that he consider cardiac echo and stress test for better evaluation of potential cardiac disease however he is self pay in addition to only staying in area temporarily. He was encouraged to identify a primary provider near his family that he can discuss this with and arrange testing as needed. (4) Anemia SNOMED Code(s): 102120049 ICD Code: D64.9 - ANEMIA, UNSPECIFIED Status: Acute Priority: Medium Current Visit: Yes Onset Date: 12/12/19 Problem Details: Iron studies overall unremarkable. Hgb improved after diuresis Qualifiers: Anemia type: unspecified type Qualified Code(s): D64.9 - Anemia, unspecified (5) COPD (chronic obstructive pulmonary disease) SNOMED Code(s): 14744911 ICD Code: J44.9 - CHRONIC OBSTRUCTIVE PULMONARY DISEASE, UNSPECIFIED Status: Acute Priority: Medium Current Visit: Yes Onset Date: 12/12/19 Problem Details: COPD by today's chest x-ray. No fever or bronchitic type symptoms. No complaints of SOB. Follow up as needed with primary provider. Qualifiers: COPD type: emphysema (6) Hyperbilirubinemia SNOMED Code(s): 33739538 ICD Code: E80.6 - OTHER DISORDERS OF BILIRUBIN METABOLISM Status: Acute Priority: Medium Current Visit: Yes Onset Date: 12/12/19 Problem Details: Observe for now. Possibly secondary to his alcohol use. Consider Gilbert's Syndrome. Considered abdominal and testicular ultrasounds secondary to possible additional ascites and current bilateral hydroceles depending on his clinical course. Ultrasounds not available over weekend. Given symptomatic improvement with diuresis he is advised to follow up with a PCP for continued care. (7) Left bundle branch block SNOMED Code(s): 00632076 ICD Code: I44.7 - LEFT BUNDLE-BRANCH BLOCK, UNSPECIFIED Status: Acute Priority: High Current Visit: Yes Onset Date: 12/12/19 Problem Details: Newly diagnosed complete bifascicular bundle branch block. Cardiac work-up recommended as above. (8) Cellulitis SNOMED Code(s): 630778426 ICD Code: L03.90 - CELLULITIS, UNSPECIFIED Status: Chronic Priority: Medium Current Visit: Yes Problem Details: Chronic recurrent cellulitis likely secondary to his newly diagnosed diabetes. No indication for antibiotic therapy at this time. Qualifiers: Site of cellulitis: extremity Site of cellulitis of extremity: lower extremity Laterality: unspecified laterality Qualified Code(s): L03.119 - Cellulitis of unspecified part of limb (9) Tobacco abuse counseling SNOMED Code(s): 701349300, 487320343, 578354582 ICD Code: Z71.6 - TOBACCO ABUSE COUNSELING Status: Chronic Priority: Medium Current Visit: Yes Problem Details: Tobacco cessation information to be provided at discharge. - Patient Summary/Data Hospital Course: Patient's symptoms improved rapidly after diuresing with Lasix as noted above. He feels much more comfortable. OK to discharge home today. Blood sugars monitored. Patient received diabetic teaching in areas of diet and blood sugar meter use. Troponins negative. Time spent with patient discussing concerns around diabetes/good blood sugar control/adverse effects of diabetes/alcohol contribution to DM, heart disease, and his edema issues/and consistent follow up for his issues. He does travel constantly for work. Has no insurance. Admits he moves his family frequently due to work issues. He does have family in [facility] and thinks that he may try to touch base with a PCP/clinic there. Given limitations that will likely be imposed due to patient's self pay status the focus for now will be on getting him on a more appropriate diet, stopping use of ETOH, started on oral meds for DM, and monitoring his blood sugars with glucometer. He has no plans at this time to follow through with recommendations for PFTs/stress testing/cardiac echo. Patient showed interest in discussing lifestyle changes. He does not smoke if not associated with ETOH use and feels that it should not be hard for him to not smoke as long as he does not drink ETOH. His goal is to stop ETOH use and change his diet. He will not be started on a diuretic [facility] at this time as he will see if avoiding ETOH and changing diet to heart health/lower carb is enough to keep the extra fluid from collecting. - Patient Instructions Diet: Limited Carb (Lower carb/heart health/non-inflammatory diet) Fluid Restriction: 2000 mL (adjust as needed if working in hot environment) Activity: As Tolerated Driving: May Drive Today Showering/Bathing: May Shower Notify Provider of: Fever, Increased Pain, Swelling and Redness, Drainage Other/Special Instructions: Obtain a glucometer so you can check your blood sugars. It is good to get an idea of your blood sugar when you wake up, before meals, and 1-2 hour after meals. High blood sugars after meal? Think of what you ate that caused it to go high. Add it to your list of foods to avoid later. You want to try to get around 90-100 before meals, and avoid hitting more than 160-170 1-2 hours after meals. Start the medications. You will need to find a primary provider for continued refill of the blood sugar pill later. Maybe you can find one that provides telemedicine. That way you can keep in touch with same person as you move around. Consider getting a [employer] prescription membership. That can save you money on prescriptions since you do not have insurance. [facility] may have similar program. At one point you may want to consider getting your heart checked as discussed in ER. A cardiac echo can look at how your heart functions. A stress test can look for problems with heart function/oxygenation while you are exercising. Also, limit your fluid intake to 2000ml daily for now. Although if you are outside working in the heat drink to stay hydrated. Drink WATER. No soda or energy drinks or other manmade things. Avoid alcohol as we discussed. Diet changes as discussed too. Diet can fix about 80% of the problem. Follow up as needed if you have problems/worsening i ssues. - Discharge Plan *PRESCRIPTION DRUG MONITORING PROGRAM REVIEWED*: Not Applicable *COPY OF PRESCRIPTION DRUG MONITORING REPORT IN PATIENT YEISON: Not Applicable Prescriptions/Med Rec: Blood-Glucose Meter [Blood Glucose Meter] 1 each ASDIRECTED #1 each Blood Sugar Diagnostic [Blood Glucose Test Strip] 1 each ASDIRECTED #1 strip metFORMIN [Glucophage XR] 500 mg PO BIDMEALS #60 tab.er Furosemide [Lasix] 20 mg PO DAILY #7 tab Potassium Chloride 20 meq PO DAILY #10 tablet.er Home Medications: Home Meds Furosemide [Lasix] 20 mg PO DAILY #7 tab 12/12/19 [Rx] Potassium Chloride 20 meq PO DAILY #10 tablet.er 12/12/19 [Rx] Blood Sugar Diagnostic [Blood Glucose Test Strip] 1 each ASDIRECTED #1 strip 12/14/19 [Rx] Blood-Glucose Meter [Blood Glucose Meter] 1 each ASDIRECTED #1 each 12/14/19 [Rx] metFORMIN [Glucophage XR] 500 mg PO BIDMEALS #60 tab.er 12/14/19 [Rx] Patient Handouts: Type 2 Diabetes Mellitus, Diagnosis, Adult, Furosemide injection, Heart Failure, Self Care, Metformin extended-release tablets, Heart Failure, Diagnosis, Diabetes Mellitus and Nutrition, Adult, Blood Glucose Monitoring, Adult Forms: ED Department Discharge Referrals: PCP,Not In Area [Ordering Only Provider] - - Discharge Summary/Plan Comment DC Time >30 min.: No - General Info Date of Service: 12/14/19 Admission Dx/Problem (Free Text: Patient admitted for diuresis after complaining of significant edema. Noted to poorly controlled DM along with some CHF. Subjective Update: Feels much less bloated today. More comfortable. Functional Status: Reports: Pain Controlled, Tolerating Diet, Ambulating, Urinating. Denies: New Symptoms - Review of Systems General: Reports: No Symptoms HEENT: Reports: No Symptoms Pulmonary: Reports: No Symptoms Cardiovascular: Reports: Other (mild lower extremity edema) Gastrointestinal: Reports: No Symptoms Genitourinary: Reports: No Symptoms Musculoskeletal: Reports: No Symptoms Skin: Reports: Other (hyperpigmented areas lower legs from previous sores/none active at this time) Neurological: Reports: No Symptoms Psychiatric: Reports: No Symptoms - Patient Data Vitals - Most Recent: Last Vital Signs Temp 36.3 C 12/14/19 07:43 Pulse 91 12/14/19 07:43 Resp 20 12/14/19 07:43 BP 102/68 12/14/19 07:43 Pulse Ox 98 12/14/19 07:43 Weight - Most Recent: 130.181 kg I&O - Last 24 hours: Intake & Output 12/13/19 12/14/19 12/14/19 22:59 06:59 14:59 Intake Total 420 Balance 420 Lab Results - Last 24 hrs: Laboratory Results - last 24 hr 12/13/19 12/13/19 12/14/19 Range/Units 17:06 21:04 07:42 WBC (4.0-10.2) K/uL RBC (4.33-5.41) M/uL Hgb (13.1-16.8) g/dL Hct (39.0-49.0) % MCV (84.0-98.0) fL MCH (28.2-33.3) pg MCHC (31.7-36.0) g/dL RDW (11.2-14.1) % Plt Count (150-350) K/uL Neut % (Auto) (45.0-80.0) % Lymph % (Auto) (10.0-50.0) % [place] % (Auto) (2.0-14.0) % Eos % (Auto) (0.0-5.0) % Baso % (Auto) (0.0-2.0) % Neut # (Auto) (1.40-7.00) K/uL Lymph # (Auto) (0.50-3.50) K/uL Monroe # (Auto) (0.00-1.00) K/uL Eos # (Auto) (0.00-0.50) K/uL Baso # (Auto) (0.00-0.20) K/uL POC Sodium (138-146) mmol/L POC Potassium (3.5-4.9) mmol/L POC Chloride (98-109) mmol/L POC Total CO2 (24-29) mmol/L POC BUN (8-26) mg/dL POC Creatinine (0.6-1.3) mg/dL POC Glucose 177 H 143 H 103 (65-110) mg/dl 12/14/19 12/14/19 Range/Units 11:16 11:23 WBC 6.1 (4.0-10.2) K/uL RBC 4.76 (4.33-5.41) M/uL Hgb 14.3 D (13.1-16.8) g/dL Hct 44.5 (39.0-49.0) % MCV 93.5 (84.0-98.0) fL MCH 30.0 (28.2-33.3) pg MCHC 32.1 (31.7-36.0) g/dL RDW 15.9 H (11.2-14.1) % Plt Count 165 (150-350) K/uL Neut % (Auto) 67.1 (45.0-80.0) % Lymph % (Auto) 21.6 (10.0-50.0) % Monroe % (Auto) 9.4 (2.0-14.0) % Eos % (Auto) 1.7 (0.0-5.0) % Baso % (Auto) 0.2 (0.0-2.0) % Neut # (Auto) 4.07 (1.40-7.00) K/uL Lymph # (Auto) 1.31 (0.50-3.50) K/uL Monroe # (Auto) 0.57 (0.00-1.00) K/uL Eos # (Auto) 0.10 (0.00-0.50) K/uL Baso # (Auto) 0.01 (0.00-0.20) K/uL POC Sodium 140 (138-146) mmol/L POC Potassium 3.9 (3.5-4.9) mmol/L POC Chloride 101 (98-109) mmol/L POC Total CO2 31 H (24-29) mmol/L POC BUN 15 (8-26) mg/dL POC Creatinine 0.8 (0.6-1.3) mg/dL POC Glucose 146 H (65-110) mg/dl [place] Results - Last 24 hrs: Microbiology 12/12/19 15:10 Urine Culture - Final Urine, Clean Catch MIXED POSITIVE ERMA DAY 2 Med Orders - Current: Current Medications Acetaminophen (Tylenol) 650 mg PO Q4H PRN PRN Reason: Pain Furosemide (Lasix) 20 mg IVPUSH BID [facility] Last Admin: 12/14/19 07:38 Dose: 20 mg Documented by: Metformin HCl (Glucophage) 500 mg PO BID [facility] Last Admin: 12/14/19 07:38 Dose: 500 mg Documented by: Potassium Chloride (Klor-Con M20) 20 meq PO BID [facility] Last Admin: 12/14/19 07:38 Dose: 20 meq Documented by: Sodium Chloride (Saline Flush) 10 ml FLUSH ASDIRECTED PRN PRN Reason: Keep Vein Open Last Admin: 12/14/19 07:38 Dose: 10 ml Documented by: Sodium Chloride (Saline Flush) 10 ml FLUSH Q12HR PRN PRN Reason: Keep Vein Open Temazepam (Restoril) 15 mg PO BEDTIME PRN PRN Reason: Insomnia Discontinued Medications Enoxaparin Sodium (Lovenox) 60 mg SUBCUT Q24H [facility] Last Admin: 12/12/19 14:25 Dose: Not Given Documented by: Furosemide (Lasix) 40 mg IVPUSH Q8H [facility] Last Admin: 12/12/19 14:25 Dose: Not Given Documented by: Furosemide (Lasix) 40 mg IVPUSH Q8H [facility] Last Admin: 12/13/19 05:11 Dose: 40 mg Documented by: Furosemide (Lasix) 60 mg IVPUSH NOW ONE Stop: 12/12/19 14:17 Last Admin: 12/12/19 14:38 Dose: 60 mg Documented by: Potassium Chloride (Klor-Con M20) 20 meq PO TID [facility] Last Admin: 12/13/19 13:47 Dose: Not Given Documented by: - Exam General: Reports: Alert, Oriented, Cooperative, No Acute Distress HEENT: Reports: Pupils Equal, Pupils Reactive, EOMI, Mucous Membr. Moist/[place] Neck: Reports: Supple Lungs: Reports: Clear to Auscultation, Normal Respiratory Effort Cardiovascular: Reports: Regular Rate, Regular Rhythm GI/Abdominal Exam: Soft (Male) Exam: Deferred Rectal (Males) Exam: Deferred Extremities: Normal Range of Motion, Normal Capillary Refill, Other (mild edema bilaterally). No: Hussain's Sign, Increased Warmth, Mottled, Pallor, Redness Skin: Reports: Warm, Dry, Other (scattered hyperpigmented scars lower legs. ) Neurological: Reports: No New Focal Deficit Psy/Mental Status: Reports: Alert, Normal Affect, Normal Mood
== END 2019-12-14 13:10 | disposition home or self-care (01) | DRG 292 ==
LOC: LL.ED 10:07 → UNDOADMIN 13:19 → LL.MS 13:19 → UNDODISIN 12-14 13:10
PROVIDERS: ADMIT Family Medicine; ATTEND Family Medicine
DX: I50.9 Heart failure, unspecified (principal); L03.119 Cellulitis of unspecified part of limb; E11.9 Type 2 diabetes mellitus without complications; D64.9 Anemia, unspecified; E80.6 Other disorders of bilirubin metabolism; I44.7 Left bundle-branch block, unspecified; Z71.6 Tobacco abuse counseling; Z79.84 Long term (current) use of oral hypoglycemic drugs; Z79.899 Other long term (current) drug therapy; E78.00 Pure hypercholesterolemia, unspecified; E66.9 Obesity, unspecified; F17.210 Nicotine dependence, cigarettes, uncomplicated; J43.9 Emphysema, unspecified
CPT/HCPCS: 36415; 74022; 80047; 80053; 80061; 81001; 82043; 82140; 82150; 82247; 82248; 82550; 82553; 82570; 82607; 82728; 82962; 83036; 83540; 83550; 83605; 83690; 83735; 83880; 84484; 84550; 85025; 85610; 85730; 87086; 93005; 96374; 99285-25; A9270-GY; J1940